=== PATIENT | female | born 1960 | race Caucasian/White ===

== ENCOUNTER 2024-10-19 17:38 | Observation (INO) ==
[2024-10-19 18:18] LABS: Hematocrit (blood only) 41.8 % (37.0-47.0); Hemoglobin 13.5 g/dl (12.0-16.0); Immature Granulocytes # (auto) 0.03 K/uL (0.01-0.20); Immature Granulocytes % (auto) 0.4 %; Mean Corpuscular Hemoglobin 29.9 pg (25.0-34.0); Mean Corpuscular Volume 92.7 fL (80.0-100.0); Platelet Count 276 K/uL (130-400); RDW Standard Deviation 48.8 fL (36.4-46.3); Red Blood Count 4.51 M/uL (4.20-5.40); White Blood Count 7.65 K/ul (4.8-10.8)
[2024-10-19 18:36] LABS: Alanine Aminotransferase 15.0 U/L (7-52); Albumin Globulin Ratio 1.4 (0.9-2); Alkaline Phosphatase 69.0 U/L (34-104); Anion Gap 8.0 (3-11); Bilirubin,Total 0.4 mg/dl (0.2-1.0); Blood Urea Nitrogen 44.0 mg/dl (6-23); Calcium 9.6 mg/dl (8.6-10.3); Carbon Dioxide 26.0 mmol/L (21-32); Chloride 103.0 mmol/L (98-107); Creatinine Clr Calc Pharmacy 60.9 ml/min; Globulin 3.1 gm/dl (2.5-4.0); Glucose 133.0 mg/dl (70-99(Fasting)); Potassium 3.8 mmol/L (3.5-5.1); Sodium 137.0 mmol/L (136-145); Total Protein 7.5 gm/dl (6.0-8.3)
[2024-10-19 19:19] LABS: INR 0.9 (0.9-1.1); Partial Thromboplastin Time 29 Seconds (21-31); Prothrombin Time 9.9 Seconds (9.0-12.0)
--- NOTE | 2024-10-19 19:35 | XRay Report ---
Clinical History: Chest pain Technique: A frontal view of the chest was obtained Findings: There are no confluent pulmonary infiltrates. The heart size is within normal limits. No pleural effusion or pneumothorax is seen. There is no definite pulmonary nodule. No fracture is noted. No foreign body is seen Impression: No active disease Electronically signed by Jeffery Rebollar 10-19-2024 7:34 PM
--- NOTE | 2024-10-19 20:30 | Emergency Department Note ---
Impression & Plan Chest pain, Left bundle branch block (LBBB) on electrocardiogram, Back pain, Hypertension ED Provider Note NAME: WU ROMERO AGE: 64 SEX: F : 1960 ARRIVES VIA: Walk-In INFORMANT: Patient ED PROVIDER(S): Lukas Ledbetter MD CHIEF COMPLAINT: chest/back pain, referred PLAN: Disposition: Admit MEDICAL DECISION MAKING: The patient is a pleasant 64-year-old woman with a past medical history of hypertension who presents to the emergency department via walk-in referred by her PCP office for abnormal EKG which was obtained today in the setting of the patient having appointment for chest pain that she reports occurred a week ago and since then has had constant back pain. Patient reports that prior to that she was started on lisinopril for elevated blood pressure. She denies any fevers, chills, cough, congestion, GI or symptoms. She denies any history of exertional chest pain. On my evaluation the patient is no acute distress, afebrile blood pressure 200/100s and vital signs otherwise stable. She appears clinically dry. She exhibits no focal neurologic deficits. EKG demonstrates left bundle branch block without prior for comparison without Sgarbossa criteria. CXR negative for acute cardiopulmonary process per my personal preliminary review/interpretation. WBC, H/H and platelets within normal limits. Chemistry without metabolic acidosis. Electrolytes and LFTs unremarkable. High-sensitivity troponin 7.7, within normal limits. CTA of the chest with dissection protocol performed. Per my preliminary independent or potation no acute abnormalities are identified. Patient was treated with IV fluid hydration and subsequently had improvement in her blood pressure to the 150s/80s. Given the patient's left bundle branch block of unclear clear chronicity with recent history of chest pain and now ongoing back pain with hypertension patient agrees with plan for admission for further management. Case was discussed with Dr. Abraham, [facility] hospitalist, who will evaluate the patient for admission. Finalized CTA radiology report was negative for PE or acute aortic pathology. Further management per admitting team. Triage Nursing notes reviewed and agree them. Prior/external medical records reviewed Vital Signs: reviewed Differential diagnosis: Cardiac ischemia, aortic dissection, pulmonary embolism, pneumothorax, pneumonia, pericarditis, myocarditis, esophageal rupture, GERD, cholecystitis, pancreatitis, musculoskeletal, as well as other pathologies. ER treatment provided: See below. Diagnostics interpreted by me: ECG: Normal sinus rhythm, 90 bpm, no ectopy, left bundle branch block, no Sgarbossa criteria, QTc 496, QRS 154. No prior EKGs for comparison Cardiac Monitoring: An order for continuous cardiac monitoring was placed and demonstrated normal sinus rhythm, 90 bpm, no ectopy. Laboratory studies: See below Imaging studies: See below Consultation(s): Case was discussed with Dr. Abraham, [facility] hospitalist, who will evaluate the patient for admission. HPI: Per MDM. ROS: See above HPI for pertinent positives & negatives. A total of 10 systems reviewed and were otherwise negative. VITALS:See Below PHYSICAL EXAMINATION: GENERAL: Awake, alert, well-appearing, in no distress HENT: Normocephalic, atraumatic. Oropharynx with dry mucous membranes and otherwise unremarkable. EYES: Normal conjunctiva. Sclera non-icteric. EOMI. No nystamgus. PEARRL. NECK: Supple. No nuchal rigidity. FROM. No JVD. RESPIRATORY: Clear to auscultation. CARDIAC: Regular rate, normal rhythm. Extremities warm and well perfused. Pulses equal. ABDOMEN: Soft, non-distended. No tenderness to palpation. No rebound or guarding. No masses. MUSCULOSKELETAL: Chest examination reveals no tenderness. The back is symmetrical on inspection without obvious abnormality. There is no CVA tenderness to palpation. No joint edema. LOWER EXTREMITIES: Calves are equal size bilaterally and non-tender. No edema. No discoloration. NEURO: Cranial nerves II-XII grossly intact. 5/5 strength and SILT x 4 extremities. Cerebellar function intact including [id number], alternating palms, [id number]. SKIN: No rash or jaundice noted. Lukas Ledbetter MD Past Med/Surg History Problem List (Updated 10/20/24 @ 03:55 by Lukas Ledbetter MD) Hypertension (Acute) Back pain (Acute) Chest pain (Acute) Left bundle branch block (LBBB) on electrocardiogram (Acute) Chronic kidney disease Vitamin D deficiency Hyperlipidemia Essential (primary) hypertension Family History Mother Atrial fibrillation Hypertension Diabetes Brother Hypertension Father Stroke Liver disease Social History Smoking Status: Current every day smoker Tobacco Type: Cigarettes Hx Alcohol Use: Yes Alcohol type: beer, wine and hard liquor Alcohol Intake Frequency: 2-3 x/Week Hx Substance Use: No Preferred Language: Singaporean Feels Safe at Home: Yes Allergies Allergies Allergy/AdvReac Type Severity Reaction Status Date / Time codeine AdvReac Nausea and Verified 10/19/24 22:26 vomiting Home Meds Home Medications Medication Instructions Recorded Confirmed lisinopril 40 mg tablet 40 mg PO DAILY 11/29/21 10/19/24 Multiple Herbs 0 dose PO DAILY 10/19/24 10/19/24 Results & Data (ED) Vital Signs Vital Signs - 24 hr 10/19/24 17:45 10/19/24 20:24 10/19/24 20:30 Temperature 36.5 C Temperature Source Temporal Artery Scan Pulse Rate 94 H 72 Pulse Rate [Apical] Pulse Rate from SpO2 Sensor 73 Pulse Rhythm [Apical] Pulse Strength [Apical] Respiratory Rate 19 19 Respiratory Effort / Characteristics Respiratory Depth Respiratory Pattern Blood Pressure 203/104 H 171/95 H 174/102 H Blood Pressure [Right Arm] Blood Pressure Mean 137 120 120 Blood Pressure Mean [Right Arm] Blood Pressure Position [Right Arm] Pulse Oximetry 99 98 Oxygen Delivery Method Room Air Sepsis Recent Fever Within 48 Hours No Sepsis New/Unexplained Change in Mental Status N/A Sepsis Action Taken by Nursing No Action Required 10/19/24 21:00 10/19/24 21:33 10/19/24 22:00 Temperature Temperature Source Pulse Rate 74 85 71 Pulse Rate [Apical] Pulse Rate from SpO2 Sensor 72 85 71 Pulse Rhythm [Apical] Pulse Strength [Apical] Respiratory Rate 17 20 17 Respiratory Effort / Characteristics Respiratory Depth Respiratory Pattern Blood Pressure 160/90 H 196/117 H 157/78 H Blood Pressure [Right Arm] Blood Pressure Mean 113 143 104 Blood Pressure Mean [Right Arm] Blood Pressure Position [Right Arm] Pulse Oximetry 96 96 96 Oxygen Delivery Method Sepsis Recent Fever Within 48 Hours Sepsis New/Unexplained Change in Mental Status Sepsis Action Taken by Nursing 10/19/24 22:00 10/19/24 22:30 Temperature Temperature Source Pulse Rate Pulse Rate [Apical] 70 68 Pulse Rate from SpO2 Sensor Pulse Rhythm [Apical] Regular Regular Pulse Strength [Apical] Normal Normal Respiratory Rate 14 15 Respiratory Effort / Characteristics Non-Labored Spontaneous Non-Labored Spontaneous Respiratory Depth Normal Normal Respiratory Pattern Regular Regular Blood Pressure Blood Pressure [Right Arm] 157/78 H 166/89 H Blood Pressure Mean Blood Pressure Mean [Right Arm] 104 114 Blood Pressure Position [Right Arm] Lying Lying Pulse Oximetry 96 98 Oxygen Delivery Method Room Air Room Air Sepsis Recent Fever Within 48 Hours Sepsis New/Unexplained Change in Mental Status Sepsis Action Taken by Nursing Laboratory Data Attestation: I reviewed the patient's lab results. 10/19/24 17:59 10/19/24 17:59 Lab Results 10/19/24 Range/Units 17:59 WBC 7.65 (4.8-10.8) K/ul RBC 4.51 (4.20-5.40) M/uL Hgb 13.5 (12.0-16.0) g/dl Hct 41.8 (37.0-47.0) % MCV 92.7 (80.0-100.0) fL MCH 29.9 (25.0-34.0) pg MCHC 32.3 (32.0-36.0) g/dL RDW Std Deviation 48.8 H (36.4-46.3) fL RDW Coeff of Mitchell 14.5 (11.5-14.5) % Plt Count 276 (130-400) K/uL MPV 9.2 L (9.4-12.4) fL Immature Gran % (Auto) 0.4 % Neut % (Auto) 49.0 % Lymph % (Auto) 40.8 % Forest % (Auto) 6.4 % Eos % (Auto) 2.5 % Baso % (Auto) 0.9 % Neut # (Auto) 3.75 (1.40-6.50) K/uL Lymph # (Auto) 3.12 (1.20-3.40) K/uL Forest # (Auto) 0.49 (0.11-0.59) K/uL Eos # (Auto) 0.19 (0.00-0.50) K/uL Baso # (Auto) 0.07 (0.00-0.20) K/uL Immature Gran # (Auto) 0.03 (0.01-0.20) K/uL PT 9.9 (9.0-12.0) Seconds INR 0.9 (0.9-1.1) APTT 29 (21-31) Seconds PTT Ratio 1.1 Sodium 137 (136-145) mmol/L Potassium 3.8 (3.5-5.1) mmol/L Chloride 103 (98-107) mmol/L Carbon Dioxide 26 (21-32) mmol/L Anion Gap 8 (3-11) BUN 44 H (6-23) mg/dl Creatinine 1.06 (0.6-1.2) mg/dl Est Cr Clr Drug Dosing 60.9 ml/min eGFR 58.30 BUN/Creatinine Ratio 41.5 H (10-20) Glucose 133 H (70-99(Fasting)) mg/dl Calcium 9.6 (8.6-10.3) mg/dl Magnesium 2.2 (1.7-2.4) mg/dl Total Bilirubin 0.4 (0.2-1.0) mg/dl AST 15 (13-39) U/L ALT 15 (7-52) U/L Alkaline Phosphatase 69 (34-104) U/L Troponin I High Sens 7.7 (0-14) pg/ml Total Protein 7.5 (6.0-8.3) gm/dl Albumin 4.4 (3.4-5.0) gm/dl Globulin 3.1 (2.5-4.0) gm/dl Albumin/Globulin Ratio 1.4 (0.9-2) Lipase 19 (11-82) U/L TSH 1.720 (0.300-4.500) uIu/ml Administered Medications Discontinued Medications Aspirin (Aspirin Chew 324 Mg) 324 mg PO NOW STA Stop: 10/20/24 00:06 Last Admin: 10/20/24 00:44 Dose: 324 mg Documented By: Sodium Chloride (Nss) 1,000 mls @ 999 mls/hr IV .Q1H1M ONE Stop: 10/19/24 21:46 Last Infusion: 10/19/24 22:20 Dose: Infused Documented By: Admin: 10/19/24 21:10 Dose: 999 mls/hr Documented By: MARLENI Acetaminophen (Ofirmev) 1,000 mg in 100 mls @ 400 mls/hr IV NOW STA Stop: 10/19/24 21:00 Last Infusion: 10/19/24 21:37 Dose: Infused Documented By: Admin: 10/19/24 21:10 Dose: 400 mls/hr Documented By: MARLENI Ioversol (Optiray 320 125ml) 115 ml IV ONCE ONE Stop: 10/19/24 20:48 Last Admin: 10/19/24 20:47 Dose: 115 ml Documented By: ANANDA Potassium Chloride (Potassium Chloride Crtab 20 Meq Tabcr) 20 meq PO NOW STA Stop: 10/19/24 23:54 Last Admin: 10/20/24 00:44 Dose: 20 meq Documented By: Imaging Data Radiologist's Impression: Chest X-Ray 10/19/24 17:48 Clinical History: Chest pain Technique: A frontal view of the chest was obtained Findings: There are no confluent pulmonary infiltrates. The heart size is within normal limits. No pleural effusion or pneumothorax is seen. There is no definite pulmonary nodule. No fracture is noted. No foreign body is seen Impression: No active disease Electronically signed by Jeffery Rebollar 10-19-2024 7:34 PM Chest CTA 10/19/24 20:30 Exam(s): CTA CHEST W/WO Contrast IV Amt: 115 ml optiray 320 EXAM: CT Angiography Chest Without and With Intravenous Contrast CLINICAL HISTORY: Reason for exam: chest/back pain, htn. TECHNIQUE: Axial computed tomographic angiography images of the chest without and with intravenous contrast. CTDI is 58.36 mGy and DLP is 1304.99 mGy-cm. Automated exposure control was utilized for the study. A dose lowering technique was utilized adhering to the principles of ALARA. MIP reconstructed images were created and reviewed. CONTRAST: Patient received 115 ml optiray 320 of IV contrast COMPARISON: No relevant prior studies available. FINDINGS: Pulmonary arteries: Unremarkable. No pulmonary embolism. Aorta: No acute findings. No thoracic aortic aneurysm. Lungs: Unremarkable. No mass. No consolidation. Pleural space: Unremarkable. No significant effusion. No pneumothorax. Heart: Unremarkable. No cardiomegaly. No significant pericardial effusion. No evidence of RV dysfunction. Bones/joints: No acute fracture. No dislocation. Soft tissues: Unremarkable. Lymph nodes: Unremarkable. No enlarged lymph nodes. IMPRESSION: Normal chest CTA. No pulmonary embolism. No evidence of aortic dissection Electronically signed by: Kavon Copeland MD 10/20/24 00:10 AM Discharge Plan Visit Data Chief Complaint: Abnormal Labs/Diagnostic Testing Stated Complaint: DOC SENT ABN EKG ED Provider: Lukas Ledbetter Discharge Problem: Chest pain, Left bundle branch block (LBBB) on electrocardiogram, Back pain, Hypertension Patient Disposition: Admitted As Inpatient Condition: Fair Discharge Instructions Interventions: ED Discharge Assessment Last Done: 10/20/24 01:10 Discharge Problem: Chest pain Qualifiers: Chest pain type: unspecified Qualified Code(s): R07.9 - Chest pain, unspecified Back pain Qualifiers: Back pain location: thoracic back pain Chronicity: acute Back pain laterality: unspecified Qualified Code(s): M54.6 - Pain in thoracic spine Hypertension Qualifiers: Hypertension type: unspecified Qualified Code(s): I10 - Essential (primary) hypertension
[2024-10-19] MEDS: OPTIRAY 320 125ml IV ONE (20:47)
[2024-10-19] MEDS: SODIUM CHLORIDE 0.9% 1,000 ML IV ONE (21:10)
[2024-10-19] MEDS: ACETAMINOPHEN 1,000 MG/100 ML VIAL IV STA (21:10)
--- NOTE | 2024-10-19 23:53 | History & Physical Report ---
Date of Service October 19, 2024 Assessment & Plan (1) Left bundle branch block (LBBB) on electrocardiogram: (2) Chest pain: (3) Essential (primary) hypertension: Plan Patient is a 64-year-old female with a past medical history of tobacco use (quit in 2020), HTN, HLD, vitamin D deficiency, CKD. Patient presented due to chest pain 1 week ago that lasted for 2 days and central mid back pain that has been constant for 1 week. She went to her PCP was noted to have an abnormal EKG and sent to the ER. EKG in the ER revealed left bundle branch block, no previous to compare to suspecting new onset. Troponin 7.7, electrolytes stable. She is being admitted for cardiac workup. #new onset LBBB/chest pain - no previous EKGs to compare, seen on EKG in ED. Troponin 7.7, K+ 3.8, calcium WNL, magnesium 2.2, TSH WNL. CXR and CTA negative for acute changes. Patient denies any recurrence of chest pain since the episode 1 week ago. Ordered 20 mEq p.o. KCl Lipid panel and A1c with a.m. labs Repeat troponin with a.m. labs EKG repeat in the morning or as needed with any chest pain Echocardiogram ordered Given aspirin 324 mg p.o. on admission, continue with baby aspirin 81 mg daily If patient develops recurrence of chest pain, Nitropaste as needed As needed hydralazine for hypertension Trend BMP Monitor on telemetry #HTNrecently restarted lisinopril about 1 week ago. Unlikely to be contributing to symptoms above. Continue lisinopril Hydralazine as needed for hypertension #CKDpreviously followed with university lecturer Dr. Zamarripa. Renal function stable. #HLDwas previously on statin however patient discontinued and is now on herbal supplements. #History of tobacco usequit smoking in 2020. VTE ppx: SCDs, low risk Dispo: med/tele Admission and Anticipated Discharge Date Admission Date: 10/19/24 - note that admission orders were placed prior to midnight History of Present Illness Chief Complaint: Abnormal labs/diagnostic testing Primary Care Provider: Annmarie Alves Patient is a 64-year-old female with a past medical history of tobacco use (quit in 2020), HTN, HLD, vitamin D deficiency, CKD. Patient presented due to chest pain 1 week ago that lasted for 2 days and central mid back pain that has been constant for 1 week. She went to her PCP was noted to have an abnormal EKG and sent to the ER. EKG in the ER revealed left bundle branch block, no previous to compare to suspecting new onset. Troponin 7.7, electrolytes stable. She is being admitted for cardiac workup. Patient seen at bedside. She stated 1 week ago she developed sudden onset chest pain that felt like someone was "punching her chest" and this lasted for 2 days. She also noted to have developed mid central back pain that has been constant since. She also endorses dizziness 2 weeks ago on a Thursday that resolved on its own and diarrhea last Thursday that resolved on its own, denies any hematochezia or melena. She also endorses feeling "off". She denies any current dizziness, lightheadedness, chest pain, dyspnea. Patient stated that she stopped all of her home medications which included metoprolol, atorvastatin, and lisinopril in May and switch to supplements. She was restarted on lisinopril 1 week ago which is when the symptoms developed. He quit smoking tobacco in 2020 however did have 1 cigarette today due to stress, she denies any alcohol use. She took her home lisinopril today. She wishes to be full code. She denies any past history of previous cardiac history including AK or DM. She reports she has never had an EKG until today.also mention that she has been on a carnivore diet for several months. She was concerned about travel with this new finding as she is going to [facility] on Thursday for her son's wedding. Patient also noticed right foot swelling, itching, mild edema for the past few weeks. She denies any trauma to the area. Denies any recent travel. Nontender. Allergies Allergy/AdvReac Type Severity Reaction Status Date / Time codeine AdvReac Nausea and Verified 10/19/24 22:26 vomiting Home Medications Medication Instructions Recorded Confirmed Type lisinopril 40 mg tablet 40 mg PO DAILY 11/29/21 10/19/24 History Multiple Herbs 0 dose PO DAILY 10/19/24 10/19/24 History Past Med/Surg History Problem List (Updated 10/20/24 @ 03:55 by Lukas Ledbetter MD) Hypertension (Acute) Back pain (Acute) Chest pain (Acute) Left bundle branch block (LBBB) on electrocardiogram (Acute) Chronic kidney disease Vitamin D deficiency Hyperlipidemia Essential (primary) hypertension Family History Mother Atrial fibrillation Hypertension Diabetes Brother Hypertension Father Stroke Liver disease Social History Smoking Status: Current some day smoker Tobacco Type: Cigarettes Hx Alcohol Use: Yes Alcohol type: beer, wine and hard liquor Alcohol Intake Frequency: 2-3 x/Week Hx Substance Use: No Preferred Language: Egyptian Communication Ability: Effective Rn Placement Required: No Beliefs That Will Affect Care: None Current Living Situation: Alone Feels Safe at Home: Yes Safety Concerns: Feels Safe At This Time Assistive Devices: None Review of Systems Review of Systems: see HPI Physical Exam Physical Exam: The patient is awake, alert and oriented 3, well developed and well nourished, normocephalic and atraumatic, in no acute distress. Non-toxic appearing. HEENT- EOMI, mucous membranes moist. Hearing grossly intact. Heart-normal S1 and S2. No murmurs, rubs or gallops. Lungs-clear bilaterally, no respiratory distress, no accessory muscle use. Abdomen-normal bowel sounds and soft. No ascites noted. Non-tender. Extremities- no clubbing, cyanosis. Trace pedal edema to RLE. Rheumatologic-normal range of motion. Psychiatric-normal affect. Results & Data Results & Data Vital Signs (Past 12 Hours) Vital Signs Temp Pulse Pulse Resp BP BP Pulse Ox 10/19/24 22:30 68 15 166/89 H 98 10/19/24 22:00 70 14 157/78 H 96 10/19/24 22:00 71 17 157/78 H 96 10/19/24 21:33 85 20 196/117 H 96 10/19/24 21:00 74 17 160/90 H 96 10/19/24 20:30 174/102 H 10/19/24 20:24 72 19 171/95 H 98 10/19/24 17:45 36.5 C 94 H 19 203/104 H 99 O2 Del Method 10/19/24 22:30 Room Air 10/19/24 22:00 Room Air 10/19/24 22:00 10/19/24 21:33 10/19/24 21:00 10/19/24 20:30 10/19/24 20:24 10/19/24 17:45 Room Air Laboratory Results Reviewed CBC, PT/INR, CMP, troponin, mag ordered lipase Diagnostic Findings reviewed CXR CTA pending Medications Administered ED - 1L NSS bolus, Tylenol 1G IV admission - asa 324 mg po ECG Additional Comments: NSR, LBBB rate 90 qtc 496 no previous EKGs to compare to Code Status & VTE Plan Code Status full code VTE Prophylaxis Plan VTE Prophylaxis will be ordered: Yes Supervising Physician Co-Signing Physician Notes And attending addendum: I have physically seen this patient, have supervised the FEDERICA's activities, and agree with the H&P unless as otherwise noted. Assessment and Plan: The patient is a 64-year-old female with past medical history including history of tobacco use-quit in 2020, hypertension, hyperlipidemia, vitamin D deficiency, and CKD. She presented to the emergency department with complaint of chest pain that occurred 1 week ago, lasted for 2 days, and has had central mid back pain since For about 1 week. She went to her PCP today, was told she had an abnormal EKG, sent to the ED for assessment. EKG in the ER revealed a bundle branch block, no previous EKGs to compare. Troponin and electrolytes were both within normal. [facility] and treatment. Left bundle branch block/chest pain/ central mid back pain/ HTN- The patient will be admitted to telemetry for serial cardiac enzymes, serial EKG's, cardiac rhythm monitoring and a 2-D echocardiogram with Dopplers. Troponin 7.7, follow-up pending Potassium 3.8, was given 20 mEq p.o., follow-up in a.m. Given aspirin 324 mg on admission, continue 81 mg daily Check a fasting blood panel and hemoglobin A1c CBC with differential and BMP in a.m. Continue lisinopril Hydralazine if blood pressure increases, and/ or Nitropaste CKD Creatinine 1.06 on admission, near her baseline Hyperlipidemia- Previously on atorvastatin, but stoppe So she can take herbal supplements PG Care Time/CCT Total # of Minutes Spent Total Time Spent with Patient: Total time spent is greater than 50% in coordination of care (as documented) at patient's floor/unit and/or counseling patient: Coding Level of Care Code 29976 INT INP/OBS CARE MIN Diagnoses Left bundle branch block (LBBB) on electrocardiogram I44.7 Chest pain R07.9 Essential (primary) hypertension I10
[2024-10-19 23:55] LABS: Magnesium 2.2 mg/dl (1.7-2.4)
--- NOTE | 2024-10-20 00:10 | CT Scan Report ---
Exam(s): CTA CHEST W/WO Contrast IV Amt: 115 ml optiray 320 EXAM: CT Angiography Chest Without and With Intravenous Contrast CLINICAL HISTORY: Reason for exam: chest/back pain, htn. TECHNIQUE: Axial computed tomographic angiography images of the chest without and with intravenous contrast. CTDI is 58.36 mGy and DLP is 1304.99 mGy-cm. Automated exposure control was utilized for the study. A dose lowering technique was utilized adhering to the principles of ALARA. MIP reconstructed images were created and reviewed. CONTRAST: Patient received 115 ml optiray 320 of IV contrast COMPARISON: No relevant prior studies available. FINDINGS: Pulmonary arteries: Unremarkable. No pulmonary embolism. Aorta: No acute findings. No thoracic aortic aneurysm. Lungs: Unremarkable. No mass. No consolidation. Pleural space: Unremarkable. No significant effusion. No pneumothorax. Heart: Unremarkable. No cardiomegaly. No significant pericardial effusion. No evidence of RV dysfunction. Bones/joints: No acute fracture. No dislocation. Soft tissues: Unremarkable. Lymph nodes: Unremarkable. No enlarged lymph nodes. IMPRESSION: Normal chest CTA. No pulmonary embolism. No evidence of aortic dissection Electronically signed by: Kavon Copeland MD 10/20/24 00:10 AM
[2024-10-20 00:11] LABS: Thyroid Stimulating Hormone 1.72 uIu/ml (0.300-4.500)
[2024-10-20 00:13] LABS: Lipase 19.0 U/L (11-82)
[2024-10-20] MEDS: POTASSIUM CHLORIDE CRTAB 20 MEQ TABCR PO STA (00:44)
[2024-10-20] MEDS: ASPIRIN CHEW 324 MG PO STA (00:44)
[2024-10-20] MEDS ORDERED: ACETAMINOPHEN 325 MG TAB PO PRN (01:09)
[2024-10-20] MEDS ORDERED: NITROGLYCERIN 2% OINTMENT 30GM TUBE EXT PRN (01:09)
[2024-10-20] MEDS ORDERED: POLYETHYLENE (MIRALAX) 17 GM PACK PO PRN (01:09)
[2024-10-20] MEDS ORDERED: MELATONIN 3 MG TAB PO PRN (01:09)
[2024-10-20] MEDS ORDERED: ONDANSETRON INJ 2 MG/ML 2 ML VIAL IV PRN (01:09)
[2024-10-20 05:10] LABS: Hematocrit (blood only) 37.6 % (37.0-47.0); Hemoglobin 12.1 g/dl (12.0-16.0); Immature Granulocytes # (auto) 0.02 K/uL (0.01-0.20); Immature Granulocytes % (auto) 0.3 %; Mean Corpuscular Hemoglobin 30.1 pg (25.0-34.0); Mean Corpuscular Volume 93.5 fL (80.0-100.0); Platelet Count 250 K/uL (130-400); RDW Standard Deviation 49.1 fL (36.4-46.3); Red Blood Count 4.02 M/uL (4.20-5.40); White Blood Count 6.86 K/ul (4.8-10.8)
[2024-10-20 05:27] LABS: Anion Gap 6.0 (3-11); Blood Urea Nitrogen 38.0 mg/dl (6-23); Calcium 8.9 mg/dl (8.6-10.3); Carbon Dioxide 24.0 mmol/L (21-32); Chloride 109.0 mmol/L (98-107); Cholesterol 196.0 mg/dl (0-200); Creatinine Clr Calc Pharmacy 68.6 ml/min; Glucose 103.0 mg/dl (70-99(Fasting)); HDL Cholesterol 45.0 mg/dl; Magnesium 2.0 mg/dl (1.7-2.4); Potassium 4.5 mmol/L (3.5-5.1); Sodium 139.0 mmol/L (136-145); Triglycerides 148.0 mg/dl (0-150)
[2024-10-20 07:28] LABS: Hemoglobin A1C 5.6 % (4.5-5.6)
[2024-10-20] MEDS: ASPIRIN 81 MG ECTAB PO SCH (08:56)
--- NOTE | 2024-10-20 11:20 | Hospitalist Progress Note ---
Date of Service October 20, 2024 Assessment & Plan (1) Left bundle branch block (LBBB) on electrocardiogram: (2) Chest pain: (3) Essential (primary) hypertension: Plan Patient is a 64-year-old female with a past medical history of tobacco use (quit in 2020), HTN, HLD, vitamin D deficiency, CKD. Patient presented due to chest pain 1 week ago that lasted for 2 days and central mid back pain that has been constant for 1 week. She went to her PCP was noted to have an abnormal EKG and sent to the ER. EKG in the ER revealed left bundle branch block, no previous to compare to suspecting new onset. Troponin 7.7, electrolytes stable. She is being admitted for cardiac workup. #new onset LBBB/chest pain - no previous EKGs to compare, seen on EKG in ED. Troponin 7.7, K+ 3.8, calcium WNL, magnesium 2.2, TSH WNL. CXR and CTA negative for acute changes. Patient denies any recurrence of chest pain since the episode 1 week ago. Ordered 20 mEq p.o. KCl, 324 mg aspirin given, 81mg aspirin BID Lipid panel: LDL: 121, HDL: 45, A1c: 5.6% Repeat troponin with a.m. labs EKG in ED and EKG outpatient both show LBBB - CCM Echocardiogram ordered and pending Given aspirin 324 mg p.o. on admission, continue with baby aspirin 81 mg daily If patient develops recurrence of chest pain, Nitropaste as needed #HTNrecently restarted lisinopril about 1 week ago. Unlikely to be contributing to symptoms above. Continue lisinopril Hydralazine as needed for hypertension #CKDpreviously followed with employee benefits manager Dr. Zamarripa. Renal function stable. #HLDwas previously on statin however patient discontinued and is now on herbal supplements. #History of tobacco usequit smoking in 2020. VTE ppx: SCDs, low risk Dispo: med/tele Admission and Anticipated Discharge Date Admission Date: October 19, 2024 Cecily Bautista is seen resting comfortably this morning. Patient endorses that 1 week prior she had 2 days of constant chest pain and mid-back pain. Her chest pain resolved but mid back pain has been constant. Physical Exam Physical Exam: General: patient resting comfortably, NAD, non-toxic in appearance, answers questions appropriately. Skin: warm, dry, intact HEENT: NC/AT, anicteric sclera, conjunctiva without injection, moist mucus membranes. Heart: +S1/S2, regular, no m/r/g Lungs: equal air entry bilaterally, no rales/rhonchi/wheezes Abd: +BS, soft, NT/ND Ext: warm, no clubbing/cyanosis or edema Neuro: nonfocal, speech intact, no facial droop, moving all extremities. Results & Data Results & Data Vital Signs (Past 12 Hours) Vital Signs Pulse Resp BP Pulse Ox Pulse Ox O2 Del Method O2 Del Method 10/20/24 04:00 55 L 16 115/71 94 Room Air 10/20/24 01:09 98 Room Air 10/20/24 01:09 62 16 142/78 H 95 Room Air Resident Activity Tracking Resident Involvement: Resident Care Provided Care Provided: Adult Hospital Medicine (2) Chest pain Chest pain type: unspecified Qualified Code(s): R07.9 - Chest pain, unspecified
[2024-10-20 12:28] VITALS: RESP 18
[2024-10-20 15:29] VITALS: BP 157/87; TEMP 99.7; O2SAT 97
--- NOTE | 2024-10-20 16:53 | Discharge Summary ---
Date of Service October 20, 2024 Admission HPI Per Admitting Provider Patient is a 64-year-old female with a past medical history of tobacco use (quit in 2020), HTN, HLD, vitamin D deficiency, CKD. Patient presented due to chest pain 1 week ago that lasted for 2 days and central mid back pain that has been constant for 1 week. She went to her PCP was noted to have an abnormal EKG and sent to the ER. EKG in the ER revealed left bundle branch block, no previous to compare to suspecting new onset. Troponin 7.7, electrolytes stable. She is being admitted for cardiac workup. Patient seen at bedside. She stated 1 week ago she developed sudden onset chest pain that felt like someone was "punching her chest" and this lasted for 2 days. She also noted to have developed mid central back pain that has been constant since. She also endorses dizziness 2 weeks ago on a Thursday that resolved on its own and diarrhea last Thursday that resolved on its own, denies any hematochezia or melena. She also endorses feeling "off". She denies any current dizziness, lightheadedness, chest pain, dyspnea. Patient stated that she stopped all of her home medications which included metoprolol, atorvastatin, and lisinopril in May and switch to supplements. She was restarted on lisinopril 1 week ago which is when the symptoms developed. He quit smoking tobacco in 2020 however did have 1 cigarette today due to stress, she denies any alcohol use. She took her home lisinopril today. She wishes to be full code. She denies any past history of previous cardiac history including AK or DM. She reports she has never had an EKG until today.also mention that she has been on a carnivore diet for several months. She was concerned about travel with this new finding as she is going to [facility] on Thursday for her son's wedding. Patient also noticed right foot swelling, itching, mild edema for the past few weeks. She denies any trauma to the area. Denies any recent travel. Nontender. Admission Exam Per Admitting Provider The patient is awake, alert and oriented 3, well developed and well nourished, normocephalic and atraumatic, in no acute distress. Non-toxic appearing. HEENT- EOMI, mucous membranes moist. Hearing grossly intact. Heart-normal S1 and S2. No murmurs, rubs or gallops. Lungs-clear bilaterally, no respiratory distress, no accessory muscle use. Abdomen-normal bowel sounds and soft. No ascites noted. Non-tender. Extremities- no clubbing, cyanosis. Trace pedal edema to RLE. Rheumatologic-normal range of motion. Psychiatric-normal affect. Principal Diagnosis New LBBB Discharge Exam General: patient resting comfortably, NAD, non-toxic in appearance, answers questions appropriately. Skin: warm, dry, intact HEENT: NC/AT, anicteric sclera, conjunctiva without injection, moist mucus membranes. Heart: +S1/S2, regular, no m/r/g Lungs: equal air entry bilaterally, no rales/rhonchi/wheezes Abd: +BS, soft, NT/ND Ext: warm, no clubbing/cyanosis or edema Neuro: nonfocal, speech intact, no facial droop, moving all extremities. Discharge Data Allergies Allergy/AdvReac Type Severity Reaction Status Date / Time codeine AdvReac Nausea and Verified 10/19/24 22:26 vomiting Consultations 10/19/24 22:20 ED Decision to Admit Stat Ordered Studies 10/19/24 20:30 CT angio chest dissec wo/w con Stat Hospital Course (1) Left bundle branch block (LBBB) on electrocardiogram: (2) Chest pain: (3) Essential (primary) hypertension: Plan Patient is a 64-year-old female with a past medical history of tobacco use (quit in 2020), HTN, HLD, vitamin D deficiency, CKD. Patient presented due to chest pain 1 week ago that lasted for 2 days and central mid back pain that has been constant for 1 week. She went to her PCP was noted to have an abnormal EKG and sent to the ER. EKG in the ER revealed left bundle branch block, no previous to compare to suspecting new onset. Troponin 7.7, electrolytes stable. She is being admitted for cardiac workup. #new onset LBBB/chest pain - no previous EKGs to compare, seen on EKG in ED. Troponin 7.7, K+ 3.8, calcium WNL, magnesium 2.2, TSH WNL. CXR and CTA negative for acute changes. Patient denies any recurrence of chest pain since the episode 1 week ago. Ordered 20 mEq p.o. KCl Lipid panel: LDL 121 and HDL 45 and A1c: 5.6 Repeat troponin wnl Echocardiogram ordered, results pending Monitor on telemetry #HTNrecently restarted lisinopril about 1 week ago. Unlikely to be contributing to symptoms above. Continue lisinopril Hydralazine as needed for hypertension #CKDpreviously followed with pricing associate Dr. Zamarripa. Renal function stable. #HLDwas previously on statin however patient discontinued and is now on herbal supplements. #History of tobacco usequit smoking in 2020. VTE ppx: SCDs, low risk Dispo: med/tele Total Time Total Time Spent Total Time Spent (In Minutes): greater than 30 Discharge Plan Discharge Items Patient Disposition: Home - Self-Care Reason For Visit: NEW LBBB Discharge Diagnosis: New LBBB Condition on Discharge: Fair Activity: Per Instructions section Non-emergency contact: Primary Care Provider Call non-emergency contact if: your symptoms worsen and your pain is concerning for you Follow-up/Referrals: Annmarie Alves [Primary Care Provider] - Diet: Regular and Heart Healthy Addtl Attending Provider Instructions: abnormal echocardiogramas we discussed, your echocardiogram does not at all look consistent with a heart that has had heart attacks (that typically shows a region of the heart not working well, while the rest works okay. Your heart is mildly weakbut equally weak throughout). Further, you are not showing any symptoms consistent with lack of blood flow to your heart (typically exertional chest pressure/fullness/heaviness/tightness, an undue amount of shortness of breath (shortness of breath disproportionate to what you should be feeling for what you are doing) and then unexplainable fatigue). With all of that, the slightly weak heart is almost certainly due to blood pressurewhen we have uncontrolled blood pressure for a while it can start to create back pressure that makes your heart muscle fatigue. The main management for this is good blood pressure control (ideally 130/85 or less when we are medicating, obviously true normal is probably more 110/70but when we get that tight with medications we often cause more side effects) and healthy eating (predominantly fruits and vegetables, lean sources of protein, and minimal on bratty/starchy/sugary carbohydrates and saturated fats) as well as regular exercise (ideally 20-30 minutes of light cardiovascular exercise daily) - Dr. Rabago will follow you in the office, follow your blood pressure and offer guidanceif your blood pressures are mildly uncontrolled, we can probably continue with the lisinopril and let the lifestyle changes have more time to take effect; if your numbers are very uncontrolled, he may need to add additional medicines for the time being; he will also likely repeat an echocardiogram in 3-4 months to follow for stability (sometimes improvement takes longer) as we discussed, the "paranoia" is that while nothing about your echocardiogram or symptoms fit with coronary disease, coronary disease is extremely common. To that end, it would be reasonable to get a stress test set up as an outpatientagain really mostly to indulge the fact that coronary disease is a common entity in a 64-year-old with high blood pressure, but nothing to do with you specifically. Should you develop symptoms consistent with coronary disease, we would definitely want you checked out right away (i.e. LESLIE if the symptoms do not resolve in 5 minutes or less). Most commonly symptoms will include any/all of: Chest pain that is most often a pressure/fullness/heaviness either in the center of the chest or a little left of center (sometimes with radiation to arm or jaw), shortness of breath that comes out of nowhere or seems disproportionately bad for what you are doing, or unimpressive fatigue that you cannot explain otherwisethis sort of stuff would require going to an ER. At the same time, like we discussed, I really doubt that any of these will develop. The left bundle branch block that started this whole current journey is almost certainly an incidental finding. Like we discussed, often as people accumulate birthdays the electrical system starts to malfunctionand a left bundle branch block is not really a "disease state" as much as it is and "EKG abnorm ality"with you, the cause and effect could be the heart muscle being a little stretched from pushing against high blood pressure leading to stretching of the wires leading to the left bundle branch block, but again it is not really anything that you need to watch for developing symptoms specific to/have specifically manage/etc. (And like we discussed, if a left bundle branch block was brought on by a heart attack, that would really involve the whole front wall or whole septum of the heart not workingwhich is not at all you) Pending Studies at Discharge: No Stand-Alone Forms: [facility] [place], Smoking Cessation Medications and DC Order Prescriptions: Continued lisinopril 40 mg tablet 40 mg PO DAILY Multiple Herbs 0 dose PO DAILY Discharge Orders: Discharge Order (Routine); Ordered 10/20/24 Ordered By: Kavon Hernandez Admission Data Admit Date/Time: 10/19/24 23:59 Attending Provider: Kavon Hernandez Admit Provider: Jad Abraham Primary Care Provider: Annmarie Alves Other Providers: Jad Abraham Other Interventions: Discharge Summary Assessment (RN) Last Done: 10/20/24 17:26 Supervising Physician Co-Signing Physician Notes I personally examined the patient and verified all amador points of history and exam, discussed case, and agree with decision making with Dr Rabago chest pain lasted for 2 days nonstop. None since. She gets no chest pain/pressure/heaviness or untoward amounts of shortness of breath whenever she is exerting, she goes up and down steps, does a lot of yard work, and chases her grandchildren and has absolutely no symptoms. She also denies any unexplainable fatigue. Vitals noted, in general she is awake and alert pleasant no distress. HEENT normocephalic atraumatic mucous membranes moist. Breathing unlabored no accessory muscle use good effort. Skin without rashes pallor or icterus. New left bundle branch blocksymptoms were not at all consistent with myocardial ischemia. Also, should she have had an AK big enough to cause a new left bundle branch block, that almost certainly would have had to be a large anterior wall AK, which would make for focal wall motion abnormalities (which she does not have) and likely such a massive troponin elevation that it would not be normal this quickly. Left bundle nonspecific, possibly related to hypertensive cardiomyopathy and wall stretch, but no specific management needed . Cardiomyopathyglobal hypokinesis, no focal wall motion abnormalities, and septal motion consistent with left bundle branch blockgiven that she has no characteristic cardiac symptoms, I suspect this is only hypertensive cardiomyopathy (especially given that she stopped all of her medicines and was taking unknown herbals, possibly ones that were even making her pressure higher)discussed specific symptoms to watch for, discussed keeping her in the hospital for stress testing or even cardiology consult, but she agrees it seems extremely unlikely, and she is not harboring any significant worry and feels comfortable with what to watch for should she develop any ischemic symptoms. Discussed that even though this does look extremely consistent with a hypertensive cardiomyopathyand therefore the management would be blood pressure control and lifestyle changeit is always reasonable to consider an ischemic workup simply because it is a common entityshe agrees it may be reasonable to do so, but with lack of symptoms, she is perfectly comfortable (and prefers) to do this as an outpatient. Safe/stable for home Resident Activity Tracking Resident Involvement: Resident Care Provided Care Provided: Adult Hospital Medicine
[2024-10-20 17:28] VITALS: PULSE 69
--- NOTE | 2024-10-20 18:25 | XCELERA ---
[id number]
--- NOTE | 2024-10-20 19:07 | Billing Data ---
Date of Service October 20, 2024 Coding Level of Care Code 91246 INP/OBS DISCH >30 MIN
--- NOTE | 2024-10-22 05:54 | Electrocardiogram Report ---
Test Reason : Blood Pressure : */* mmHG Vent. Rate : 90 BPM Atrial Rate : 90 BPM P-R Int : 168 ms QRS Dur : 154 ms QT Int : 406 ms P-R-T Axes : 31 -42 96 degrees QTcB Int : 496 ms Normal sinus rhythm Left axis deviation Left bundle branch block Abnormal ECG No previous ECGs available Confirmed by Mark Ceballos ([id number]) on 10/22/2024 5:54:01 AM Referred By: Annmarie Alves Confirmed By: Mark Ceballos
== END 2024-10-20 19:50 | disposition home or self-care (01) ==
LOC: ED 17:38 → EDINP 17:38 → SUATTDRO 23:59 → 2N 10-20 01:10
DX: R07.9 Chest pain, unspecified; I12.9 Hypertensive chronic kidney disease with stage 1 through stage 4 chronic kidney disease, or unspecified chronic kidney disease; N18.9 Chronic kidney disease, unspecified; Z79.899 Other long term (current) drug therapy; Z82.3 Family history of stroke; Z88.5 Allergy status to narcotic agent; F17.210 Nicotine dependence, cigarettes, uncomplicated; I44.7 Left bundle-branch block, unspecified; E78.5 Hyperlipidemia, unspecified